=== PATIENT | male | born 1945 | race Caucasian/White ===

== ENCOUNTER 2024-10-13 06:35 | Day surgery (SDC) | payer OTHER, BC ==
[2024-10-11 13:55] VITALS: BMI 26.6
[2024-10-13] MEDS ORDERED: TROPICAMIDE 1% 3 ML EYE DROPS ONE (06:41)
[2024-10-13 06:56] VITALS: RESP 18
[2024-10-13] MEDS: TROPICAMIDE 1% OPHTH SOLN 15 ML BOTTLE OD ONE ×3 (07:00→07:10)
[2024-10-13] MEDS: CIPROFLOXACIN 0.3% EYE DROPS 5 ML BOTTLE ONE (07:00)
[2024-10-13] MEDS: PHENYLEPHRINE 2.5% OPTHALMIC DROP 2ML BOTTLE ONE (07:00)
[2024-10-13] MEDS: CYCLOPENTOLATE 2% OPHTH SOLN 2 ML BOTTLE ONE (07:00)
[2024-10-13] MEDS ORDERED: EPINEPHrine/PF 1 MG/1 ML (1:1,000) AMPULE ONE (07:09)
[2024-10-13] MEDS ORDERED: LIDOCAINE 1% P/F 10 MG/ML VIAL ONE (07:09)
[2024-10-13] MEDS ORDERED: TETRACAINE 0.5% OPHTH SOLN 2 ML BOTTLE ONE (07:10)
[2024-10-13] MEDS ORDERED: BSS (NA/CA/MG/K) BALANCED SALT SOLUTION OPHTH SOLN 15 ML BOTTLE ONE (07:10)
[2024-10-13] MEDS ORDERED: NEO/POLYMYX B SULF/DEXAMETH OPHTHALMIC 5ML BOTTLE ONE (07:11)
[2024-10-13] MEDS ORDERED: CARBACHOL 0.01% INTRA-OCULAR 1.5 ML VIAL ONE (07:11)
[2024-10-13] MEDS ORDERED: MIDAZOLAM HCL 2 MG/2 ML SINGLE DOSE VIAL ONE (07:45)
[2024-10-13] MEDS ORDERED: ACETYLCHOLINE 1:100 INTRA-OCUL 20 MG/2 ML KIT ONE (09:00)
[2024-10-13 09:07] VITALS: TEMP 97.8
[2024-10-13 09:29] VITALS: BP 126/80; PULSE 80
== END 2024-10-13 09:29 | disposition home or self-care (01) ==
LOC: FASU 06:35
PROVIDERS: ATTEND Ophthalmology
PROC: 08RJ3JZ Replacement of Right Lens with Synthetic Substitute, Percutaneous Approach (ICD-10-PCS; principal; 2024-10-13 08:27)
DX: H26.8 Other specified cataract (principal)
CPT/HCPCS: 66984; V2632; 82962